=== PATIENT | male | born 1965 | race Asian ===

== ENCOUNTER 2017-09-03 11:31 | Emergency (ER) | payer OTHER, MEDICARE ==
[~2017-09-03] VITALS: Ht 172.7 cm; Wt 68.0 kg
[2017-09-03 11:41] VITALS: BP 126/76
--- NOTE | 2017-09-03 11:43 | NUR ---
51/M VON WITH [employer] KARLA. PER EMS PT HAD SZ IN GROUP VAN ON A FIELD TRIP TO [facility]. WITNESSED 2 MIN TONIC CLONIC SEIZURE, BG 132. DENIES POSTICTAL STATE. VSS UPON ARRIVAL, PT NONVERBAL, BASELINE FOR PT. ABLE TO FOLLOW COMMANDS. RESP EVEN AND UNALBORED, IN NAD. ST ON MONITOR, AFBERILE. HX SPECIAL NEEDS AND SEIZURES. LAST SEIZURE 2011. ON TRILEPTAL, PER EMS COMPLIANT WITH MEDS. NKA.
--- NOTE | 2017-09-03 11:51 | NUR ---
DR BRADY IN ROOM FOR EXAM, [facility] PROVIDER CALLED TO UPDATE ON INFORMATION. NUMBER PROVIDED FOR ANY FURTHER QUESTIONS AT [phone]
[2017-09-03] MEDS ORDERED: NACL 0.9% 1,000 ML IV ONE (12:00)
[2017-09-03] MEDS ORDERED: LORazepam 2 MG/ML VIAL IVP ONE (12:00)
--- NOTE | 2017-09-03 12:01 | NUR ---
SEIZURE PADS IN PLACE, PT IN NAD, WILL CONT TO MONITOR.
[2017-09-03 12:18] LABS: HEMATOCRIT 44.8 % (36-52); HEMOGLOBIN 14.8 g/dL (12.0-18.0); MEAN CORPUSCULAR HEMOGLOBIN 31 pg (27-31); MEAN CORPUSCULAR HGB CONC 33 g/dL (33-37); MEAN CORPUSCULAR VOLUME 94 fL (80-94); PLATELET COUNT (AUTO) 258 K/uL (140-450); RED BLOOD CELL COUNT(AUTO) 4.76 MIL/uL (4.20-6.10); RED CELL DISTRIBUTION WIDTH 11.8 % (11.6-13.7); WHITE BLOOD COUNT (AUTO) 6.2 K/uL (4.8-10.8)
[2017-09-03 12:34] LABS: CARBON DIOXIDE 22.8 mmol/L (21-32); CREATININE 1.2 mg/dL (0.7-1.3); POTASSIUM 3.8 mmol/L (3.5-5.1)
[2017-09-03 12:40] LABS: ALBUMIN 4.5 g/dL (3.4-5.0); PROTHROMBIN TIME 10.4 secs (10.8-13.4); TOTAL BILIRUBIN 0.2 mg/dL (0.0-1.0)
[2017-09-03 12:51] LABS: EOSINOPHILS % (MANUAL) 1 % (0-4); LYMPHOCYTES % (MANUAL) 10 % (20-46); MONOCYTES % (MANUAL) 4 % (5-12)
[2017-09-03] MEDS ORDERED: OXCA600T2 PO (13:00)
--- NOTE | 2017-09-03 13:14 | NUR ---
Patient appears to be resting comfortably in bed. Vital Signs within normal limits. Respirations even and unlabored.WILL CONTINUE TO MONITOR.
--- NOTE | 2017-09-03 13:33 | NUR ---
PUT IN W/C AWAITING FOR [facility] FOR D/C.
[2017-09-03 13:40] VITALS: BP 118/79
--- NOTE | 2017-09-03 13:40 | NUR ---
Patient discharged with v/s stable. Written and verbal after care instructions given and explained. Patient verbalized understanding. W/C with to car. All questions addressed prior to discharge. Advised to follow up with PMD.
== END 2017-09-03 13:40 | disposition home or self-care (01) ==
LOC: MED 11:31
DX: R56.9 Unspecified convulsions (principal); F29 Unspecified psychosis not due to a substance or known physiological condition
CPT/HCPCS: 36415; 80053; 82948; 85025; 85610; 85730; 96361; 96374; 99284; J2060; J7030